=== PATIENT | male | born 1960 | race Two or more races ===

== ENCOUNTER 2016-05-11 11:38 | Emergency (ER) | payer BC, MEDICAID, OTHER ==
[~2016-05-11] VITALS: Ht 182.9 cm; Wt 97.5 kg
[~2016-05-11 11:38] MED LIST: ENAL20TA70 PO; HYDR25TA4 PO; METO-158 PO; OMEP20CA5 PO
[2016-05-11 11:45] VITALS: BP 118/86
[2016-05-11] MEDS ORDERED: PROMETHAZINE HCL 25 MG/ML 1ML IM ONE (13:15)
[2016-05-11] MEDS ORDERED: MORPHINE SULFATE 10 MG/ML INJ 1ML SDV IM ONE (13:15)
== END 2016-05-11 14:46 | disposition home or self-care (01) ==
LOC: ER 11:38
DX: G89.29 Other chronic pain (principal); M54.5 Low back pain; I25.10 Atherosclerotic heart disease of native coronary artery without angina pectoris; I10 Essential (primary) hypertension; Z88.8 Allergy status to other drugs, medicaments and biological substances; Z79.899 Other long term (current) drug therapy; F17.210 Nicotine dependence, cigarettes, uncomplicated
CPT/HCPCS: 96372; 99284; J2270; J2550

== ENCOUNTER 2017-01-08 13:06 | Emergency (ER) | payer OTHER ==
[~2017-01-08] VITALS: Ht 185.4 cm; Wt 96.2 kg
[~2017-01-08 13:06] MED LIST changes: -OMEP20CA5 PO; +OMEP20CA74 PO
[2017-01-08 13:25] VITALS: BP 141/94
[2017-01-08] MEDS ORDERED: HYDROmorphone HCL 2 MG/ML VL IM ONE (13:30)
[2017-01-08] MEDS ORDERED: ONDANSETRON HCL 4 MG/2 ML VIAL IM ONE (13:30)
== END 2017-01-08 13:56 | disposition home or self-care (01) ==
LOC: ER 13:06
DX: G89.29 Other chronic pain (principal); M54.5 Low back pain; I25.10 Atherosclerotic heart disease of native coronary artery without angina pectoris; I10 Essential (primary) hypertension; F17.210 Nicotine dependence, cigarettes, uncomplicated; Z88.6 Allergy status to analgesic agent
CPT/HCPCS: 96372; 99284; J1170; J2405

== ENCOUNTER 2017-01-10 10:49 | Emergency (ER) | payer SELFPAY ==
[~2017-01-10] VITALS: Ht 185.4 cm; Wt 96.2 kg
[2017-01-10 10:58] VITALS: BP 165/93
[2017-01-10] MEDS ORDERED: MORPHINE SULF INJ 2 MG/ML SYRINGE 1ML IM ONE (11:30)
[2017-01-10] MEDS ORDERED: PROMETHAZINE HCL 25 MG/ML 1ML IM ONE (11:30)
== END 2017-01-10 12:14 | disposition home or self-care (01) ==
LOC: ER 10:49
DX: G89.29 Other chronic pain (principal); M54.5 Low back pain; I10 Essential (primary) hypertension; F17.210 Nicotine dependence, cigarettes, uncomplicated; Z88.8 Allergy status to other drugs, medicaments and biological substances; Z86.73 Personal history of transient ischemic attack (TIA), and cerebral infarction without residual deficits; Z90.89 Acquired absence of other organs
CPT/HCPCS: 96372; 99284; J2270; J2550

== ENCOUNTER 2017-11-10 23:38 | Emergency (ER) | payer BC, OTHER ==
[~2017-11-10] VITALS: Ht 185.4 cm; Wt 96.2 kg
[2017-11-11 01:42] LABS: Basophils # (auto) 0.1 uL; Basophils % (auto) 1.2 % (0.0-2.0); Eosinophils # (auto) 0.2 uL; Eosinophils % (auto) 1.9 % (0.0-7.0); Hematocrit 50.1 % (41.0-53.0); Hemoglobin 17.6 g/dL (13.5-17.5); Lymphocytes % (auto) 37.8 % (10.0-50.0); Mean Corpuscular Hemoglobin 32.7 pg (28.0-32.0); Mean Corpuscular Hgb Conc. 35.1 g/dL (32.0-36.0); Monocytes # (auto) 0.8 uL; Monocytes % (auto) 10.3 % (0.0-12.0); Neutrophils # (auto) 3.8 uL; Neutrophils % (auto) 48.8 % (37.0-80.0); Nucleated Red Blood Cells % 0.6 %; Platelet Count (auto) 183 10^3/uL (140-450); Red Blood Cells 5.38 10^6/uL (4.5-5.90); Red Cell Distribution Width 14.3 % (11.8-14.3); White Blood Cell 7.8 10^3/uL (4.4-10.8)
[2017-11-11 01:48] LABS: Urine Bacteria NONE SEEN /hpf (None Seen); Urine Blood Negative /uL (Negative); Urine Mucus FEW (None Seen); Urine Specific Gravity 1.031 (1.001-1.035); Urine WBC <1 /hpf (0 - 3)
[2017-11-11 02:44] LABS: Anion Gap 9 (5-15); Carbon Dioxide 23 mmol/L (21-32); Chloride 106 mmol/L (98-107); Glucose 102 mg/dL (74-106); Potassium 4.1 mmol/L (3.5-5.1); Sodium 138 mmol/L (136-145)
[2017-11-11 02:45] LABS: Alanine Aminotransferase 65 U/L (16-61); Albumin 4.4 g/dL (3.4-5.0); Alkaline Phosphatase 77 U/L (45-117); Amylase 52 U/L (25-115); Aspartate Aminotransferase 77 U/L (15-37); BUN/Creatinine Ratio 13.5; Bilirubin, Total 0.9 mg/dL (0.2-1.0); Blood Urea Nitrogen 20 mg/dL (7-18); Calcium 8.8 mg/dL (8.5-10.1); GFR African American 63 mL/min; GFR Non-African American 52 mL/min; Lipase 201 U/L (73-393); Total Protein 8.9 g/dL (6.4-8.2)
[2017-11-11] MEDS ORDERED: KETOROLAC TROMETH 30 MG/ML 1ML VIAL IV ONE (08:00)
[2017-11-11] MEDS ORDERED: SODIUM CHLORIDE 0.9% 250 ML IV ONE (08:20)
[2017-11-11 08:48] VITALS: BP 153/103
== END 2017-11-11 10:23 | disposition home or self-care (01) ==
LOC: ER 23:41
DX: E86.0 Dehydration (principal); K76.9 Liver disease, unspecified; F17.210 Nicotine dependence, cigarettes, uncomplicated; Z90.49 Acquired absence of other specified parts of digestive tract; Z90.89 Acquired absence of other organs; Z88.6 Allergy status to analgesic agent
CPT/HCPCS: 36415; 74176; 80053; 81001; 82150; 83690; 85025; 93005; 96374; 99285; J1885

== ENCOUNTER 2021-10-09 08:31 | Emergency (ER) | payer BC ==
[~2021-10-09] VITALS: Ht 185.4 cm; Wt 97.3 kg
[~2021-10-09 08:31] MED LIST changes: -ENAL20TA70 PO; +ENAL20TA8 PO
[2021-10-09 09:27] LABS: Urine Bacteria NONE SEEN /hpf (None Seen); Urine Blood Negative /uL (Negative); Urine Mucus FEW (None Seen); Urine Specific Gravity 1.026 (1.001-1.035); Urine WBC <1 /hpf (0 - 3)
[2021-10-09 09:54] LABS: Basophils # (auto) 0.1 10 ^3/uL (0-0.2); Basophils % (auto) 0.9 % (0.0-2.0); Eosinophils # (auto) 0.2 10 ^3/uL (0-0.8); Hematocrit 46.9 % (41.0-53.0); Hemoglobin 15.9 g/dL (13.5-17.5); Lymphocytes # (auto) 2.2 10 ^3/uL (0.4-5.4); Mean Corpuscular Hemoglobin 31.3 pg (28.0-32.0); Mean Corpuscular Hgb Conc. 33.8 g/dL (32.0-36.0); Mean Corpuscular Volume 92.6 fL (80.0-100.0); Monocytes # (auto) 0.9 10 ^3/uL (0-1.3); Monocytes % (auto) 11.7 % (0.0-12.0); Neutrophils # (auto) 4.7 10 ^3/uL (1.6-8.6); Neutrophils % (auto) 58.4 % (37.0-80.0); Nucleated Red Blood Cells % 0.4 %; Red Blood Cells 5.07 10^6/uL (4.5-5.90); Red Cell Distribution Width 13.6 % (11.8-14.3)
[2021-10-09 10:13] LABS: Albumin 4.1 g/dL (3.4-5.0); Potassium 3.9 mmol/L (3.5-5.1)
[2021-10-09 10:18] LABS: Bilirubin, Total 0.5 mg/dL (0.2-1.0); Total Protein 8.4 g/dL (6.4-8.2)
[2021-10-09 12:57] VITALS: BP 154/72
== END 2021-10-09 13:02 | disposition home or self-care (01) ==
LOC: ER 08:31
DX: K76.9 Liver disease, unspecified (principal); R10.11 Right upper quadrant pain; I10 Essential (primary) hypertension; I25.10 Atherosclerotic heart disease of native coronary artery without angina pectoris; F17.210 Nicotine dependence, cigarettes, uncomplicated; Z90.49 Acquired absence of other specified parts of digestive tract; Z90.89 Acquired absence of other organs; Z79.899 Other long term (current) drug therapy; Z88.8 Allergy status to other drugs, medicaments and biological substances
CPT/HCPCS: 36415; 74176; 80053; 81001; 85025; 93005

== ENCOUNTER 2022-07-10 06:59 | Emergency (ER) | payer BC ==
[~2022-07-10] VITALS: Ht 182.9 cm; Wt 100.0 kg
[2022-07-10] MEDS ORDERED: MORPHINE SULFATE INJ 2 MG/ml SYRG IM ONE (07:45)
[2022-07-10 08:46] VITALS: BP 144/86
[2022-07-10] MEDS ORDERED: CYCL-837 PO (09:22)
[2022-07-10] MEDS ORDERED: HYDR-4798 PO (09:22)
== END 2022-07-10 09:36 | disposition home or self-care (01) ==
LOC: ER 06:59 → EDBD 06:59 → ER 09:34
DX: S22.32XA Fracture of one rib, left side, initial encounter for closed fracture (principal); I25.10 Atherosclerotic heart disease of native coronary artery without angina pectoris; I10 Essential (primary) hypertension; F17.210 Nicotine dependence, cigarettes, uncomplicated; Z90.49 Acquired absence of other specified parts of digestive tract; Z90.89 Acquired absence of other organs; Z88.6 Allergy status to analgesic agent; W01.0XXA Fall on same level from slipping, tripping and stumbling without subsequent striking against object, initial encounter; Y93.89 Activity, other specified; Y92.89 Other specified places as the place of occurrence of the external cause; Y99.8 Other external cause status
CPT/HCPCS: 71250; 73080; 93005; 96372; 99285; J2270

== ENCOUNTER 2022-12-21 16:33 | Emergency (ER) | payer BC ==
[~2022-12-21] VITALS: Ht 185.4 cm; Wt 98.2 kg
[~2022-12-21 16:33] MED LIST changes: +CYCL-837 PO; +ENAL1TAB48 PO; -ENAL20TA8 PO; +HYDR-4798 PO
[2022-12-21] MEDS ORDERED: HYDROcodone-ACET 10/325MG TAB PO ONE (17:15)
[2022-12-21 19:24] LABS: Basophils # (auto) 0.1 10 ^3/uL (0-0.2); Basophils % (auto) 0.6 % (0.0-2.0); Eosinophils # (auto) 0.2 10 ^3/uL (0-0.8); Eosinophils % (auto) 1.7 % (0.0-7.0); Hematocrit 48.1 % (41.0-53.0); Hemoglobin 16.6 g/dL (13.5-17.5); Lymphocytes # (auto) 2.6 10 ^3/uL (0.4-5.4); Lymphocytes % (auto) 27.5 % (10.0-50.0); Mean Corpuscular Hemoglobin 32.4 pg (28.0-32.0); Mean Corpuscular Hgb Conc. 34.5 g/dL (32.0-36.0); Monocytes % (auto) 10.1 % (0.0-12.0); Neutrophils # (auto) 5.8 10 ^3/uL (1.6-8.6); Neutrophils % (auto) 60.1 % (37.0-80.0); Nucleated Red Blood Cells % 0.1 %; Red Blood Cells 5.12 10^6/uL (4.5-5.90); White Blood Cell 9.6 10^3/uL (4.4-10.8)
[2022-12-21 19:43] LABS: Alanine Aminotransferase 31 U/L (7-40); Albumin 4.8 g/dL (3.2-4.8); Alkaline Phosphatase 82 U/L (46-116); Anion Gap 10 (5-15); Aspartate Aminotransferase 30 U/L (13-40); BUN/Creatinine Ratio 10.4 (10.0-20.0); Bilirubin, Total 1.2 mg/dL (0.2-1.0); Blood Urea Nitrogen 10 mg/dL (9-23); Calcium 9.4 mg/dL (8.5-10.1); Carbon Dioxide 24 mmol/L (20-30); Chloride 105 mmol/L (98-107); Glucose 107 mg/dL (74-106); Potassium 4.1 mmol/L (3.5-5.1); Sodium 139 mmol/L (136-145)
[2022-12-21] MEDS ORDERED: ACE3T PO (20:01)
[2022-12-21] MEDS ORDERED: ZOFR4T PO (20:01)
[2022-12-21 22:29] VITALS: BP 154/92; PULSE 62; RESP 18; TEMP 98.1; O2SAT 100
== END 2022-12-21 22:30 | disposition home or self-care (01) ==
LOC: ER 16:33
DX: R51.9 Headache, unspecified (principal); I10 Essential (primary) hypertension; I25.10 Atherosclerotic heart disease of native coronary artery without angina pectoris; F17.210 Nicotine dependence, cigarettes, uncomplicated; Z98.890 Other specified postprocedural states
CPT/HCPCS: 36415; 70450; 80053; 84484; 85025